=== PATIENT | male | born 2000 ===

== ENCOUNTER 2024-02-19 05:35 | Day surgery (SDC) | payer OTHER ==
[2024-02-10 11:29] LABS: PH,URINE 5.5 (5.0-8.0); URINE APPEARANCE Clear; URINE BILIRRUBIN Negative (NEGATIVE); URINE BLOOD Negative; URINE COLOR Yellow; URINE GLUCOSE Negative (NEGATIVE); URINE KETONE Negative (NEGATIVE); URINE LEUKOCYTE Negative; URINE NITRATE Negative; URINE PROTEIN Negative (NEGATIVE); URINE UROBILINOGEN 0.2 E.U./dl
[2024-02-10 11:33] LABS: HEMATOCRIT 43.3 % (39.0-48.0); HEMOGLOBIN 14.1 g/dL (13-16.00); MEAN CELL VOLUME 82.4 fL (80.0-100.00); MEAN CORPUSCULAR HEMOGLOBIN 26.9 pg (27.00-32.0); MEAN CORPUSCULAR HGB CONC 32.6 g/dl (32.0-36.0); PLATELET COUNT 160 K/uL (150-450); RED BLOOD COUNT 5.25 M/uL (4.00-6.00); RED CELL DISTRIBUTION WIDTH 13.7 % (11.5-14.5)
[2024-02-10 11:34] LABS: URINE BACTERIA 6.2 uL (0.0-1933); URINE WBC 4.7 uL (0.0-23.2)
[2024-02-10 11:37] LABS: URINE CAST 0.15 uL (0.0-1.40); URINE EPITHELIAL CELLS 0.1 uL (0.0-38.8); URINE RBC 0.3 uL (0.0-20.8)
[2024-02-10 12:29] LABS: CALCIUM 9.5 mg/dL (8.5-10.1); CREATININE SERUM 1.11 mg/dL (0.70-1.30); GFR 83.62; POTASSIUM 4.22 mEq/L (3.5-5.1)
[2024-02-10 12:36] LABS: INR 1.04; PROTHROMBIN TIME 11.3 SECONDS (9.0-11.5)
[2024-02-19] MEDS ORDERED: BUPIVACAINE HCL/MPF 0.5% 30ML VIAL ONE (07:25)
[2024-02-19] MEDS ORDERED: CEFAZOLIN SODIUM 1,000 MG VIAL ONE (07:25)
[2024-02-19] MEDS ORDERED: KETO10TA2 PO (09:37)
[2024-02-19] MEDS ORDERED: TRAMADOL HCL50 MG PO (09:37)
[2024-02-19] MEDS ORDERED: TYLENOL ARTHRI650 MG PO (09:37)
[2024-02-19] MEDS ORDERED: MIRALAX17 GM PO (09:37)
== END 2024-02-19 12:50 | disposition home or self-care (01) ==
LOC: U 05:35 → CIR.AMB 05:35
PROVIDERS: ATTEND Surgery
DX: K40.90 Unilateral inguinal hernia, without obstruction or gangrene, not specified as recurrent (principal); K42.0 Umbilical hernia with obstruction, without gangrene; G70.9 Myoneural disorder, unspecified
CPT/HCPCS: 49650; 49592; C1781